=== PATIENT | male | born 1940 | race Caucasian/White ===

== ENCOUNTER 2021-12-11 13:52 | Inpatient (IN) | payer OTHER ==
[~2021-12-11] VITALS: Ht 152.4 cm; Wt 49.9 kg
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
--- NOTE | 2021-12-11 14:24 | NUR ---
URINE COLLECTED AND SENT TO THE LAB
[2021-12-11 14:49] LABS: BASOPHILS % (AUTO) 0.6 % (0.0-2.0); HEMATOCRIT 38 % (39-51); HEMOGLOBIN 12.8 g/dL (13.5-17.5); LYMPHOCYTES # (AUTO) 1.3 K/uL (0.8-4.8); MEAN CORPUSCULAR HGB CONC 33 g/dl (31.0-36.0); MEAN CORPUSCULAR VOLUME 91 fL (80-96); MONOCYTES # (AUTO) 0.5 K/uL (0.1-1.30); MONOCYTES % (AUTO) 14.8 % (2.0-12.0); NEUTROPHILS # (AUTO) 1.7 K/uL (1.8-8.9); NEUTROPHILS % (AUTO) 45.6 % (43.0-81.0); PLATELET COUNT (AUTO) 254 K/uL (150-450); RED BLOOD CELL COUNT(AUTO) 4.22 MIL/uL (4.5-6.0); WHITE BLOOD COUNT (AUTO) 3.7 K/uL (4.3-11.0)
[2021-12-11 14:58] LABS: ALANINE AMINOTRANSFERASE 12 U/L (12-78); ALBUMIN 3.7 g/dL (3.4-5.0); ALCOHOL, BLOOD 6 mg/dL (0-0); ALKALINE PHOSPHATASE 98 U/L (46-116); ASPARTATE AMINOTRANSFERASE 22 U/L (15-37); BILIRUBIN,DIRECT 0.1 mg/dL (0.0-0.2); BILIRUBIN,TOTAL 0.3 mg/dL (0.2-1.0); CALCIUM, SERUM 9.1 mg/dL (8.5-10.1); CARBON DIOXIDE 28 mmol/L (21-32); CHLORIDE 102 mmol/L (98-107); GLUCOSE 91 mg/dL (74-106); POTASSIUM 4.1 mmol/L (3.5-5.1); SODIUM SERUM 137 mmol/L (136-145); TOTAL PROTEIN, SERUM 7.9 g/dL (6.4-8.2); UREA NITROGEN, BLOOD 15 mg/dL (7-18)
[2021-12-11 15:01] LABS: BILIRUBIN,URINE NEGATIVE (NEGATIVE); COLOR,URINE YELLOW (YELLOW); LEUKOCYTE ESTERASE ,URINE NEGATIVE (NEGATIVE); NITRITE, URINE NEGATIVE (NEGATIVE); PROTEIN,URINE NEGATIVE (NEGATIVE); UGLUCOSE NEGATIVE (NEGATIVE); UROBILINOGEN,URINE 0.2 EU/dL (0.2)
[2021-12-11 15:21] LABS: WBC,URINE NONE SEEN /HPF (0-3)
[2021-12-11 15:22] LABS: SQUAMOUS EPITHELIAL CELL,UR Rare /HPF (None Seen)
[2021-12-11 15:23] LABS: RBC,URINE 0-2 /HPF (0-2)
[2021-12-11 15:24] LABS: BACTERIA,URINE Rare /HPF (None Seen)
[2021-12-11 15:36] LABS: ACETAMINOPHEN < 0 ug/ml (10-30)
--- NOTE | 2021-12-11 15:58 | NUR ---
COVID ANTIGEN SWAB DONE AND SENT TO THE LAB
--- NOTE | 2021-12-11 16:25 | NUR ---
COVID TEST COLLECTED AND SENT
--- NOTE | 2021-12-11 16:28 | NUR ---
CALL FROM MAI RN,HS, INISURANCE DID NOT AUTHORIZE PATIENT TO COME IN TO GPS AND INTAKE IS WORKING ON TRANSFERRING PATIENT TO ANOTHER FACILITY.
--- NOTE | 2021-12-11 16:29 | NUR ---
MOVE SHEET SUBMITTED.
--- NOTE | 2021-12-11 18:16 | NUR ---
ROOM 215-2
--- NOTE | 2021-12-11 18:31 | NUR ---
report given to nurse Ornelas for nikolay
--- NOTE | 2021-12-12 02:31 | NUR ---
ADLS DONE; PT URINATED VIA URINAL. VSS. ALL NEEDS MET AT THIS TIME. SAFETY PRECAUTIONS CONTINUED
--- NOTE | 2021-12-12 07:44 | NUR ---
REPORT GIVEN. PT TRANSFERED TO [facility] FLOOR IN STABLE CONDITION.
[2021-12-12 08:00] VITALS: BP 138/64
[2021-12-12] MEDS ORDERED: MAGNESIUM HYDROXIDE 30 ML UDC PO PRN (08:00)
[2021-12-12] MEDS ORDERED: BLOOD SUGAR DIAGNOSTIC 1 EACH STRIP IN ONE (08:00)
[2021-12-12] MEDS ORDERED: LORAZEPAM 0.5 MG TABLET PO PRN (08:00)
[2021-12-12] MEDS ORDERED: MAG HYDROX/AL HYDROX/SIMETH 30 ML UDC PO PRN (08:00)
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
[2021-12-12] MEDS: GABAPENTIN 100 MG CAPSULE PO SCH ×2 (12:12→16:54)
[2021-12-12 16:00] VITALS: BP 128/70
--- NOTE | 2021-12-12 18:46 | NUR ---
RN-CO: Patient refused x2 skin assessment.
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
[2021-12-12 20:00] VITALS: BP 121/67
[2021-12-12] MEDS: OLANZAPINE 2.5 MG TABLET PO SCH (20:53)
[2021-12-12] MEDS ORDERED: OLANZAPINE 2.5 MG TABLET PO SCH (22:00)
[2021-12-13 07:35] LABS: BILIRUBIN,TOTAL 0.5 mg/dL (0.2-1.0); CALCIUM, SERUM 8.6 mg/dL (8.5-10.1); CREATININE 0.9 mg/dL (0.6-1.3); POTASSIUM 4.1 mmol/L (3.5-5.1); TOTAL PROTEIN, SERUM 7.4 g/dL (6.4-8.2)
[2021-12-13 07:47] LABS: THYROID STIMULATING HORMONE 1.233 uIU/mL (0.358-3.74)
[2021-12-13 08:00] VITALS: BP 121/63
[2021-12-13] MEDS: GABAPENTIN 100 MG CAPSULE PO SCH ×3 (08:43→16:12)
--- NOTE | 2021-12-13 09:57 | NUR ---
Treatment Plan: Pt refused to sign treatment plan and was suspicious.
--- NOTE | 2021-12-13 10:20 | NUR ---
Social Work Note/Substance Abuse Intervention: Patient was provided with a brief substance abuse intervention and referred to [facility] ([phone]), [facility] ([phone]), and [facility] ([phone]) for alcohol abuse.
--- NOTE | 2021-12-13 10:32 | NUR ---
STEVEN Initial Discharge Plan: Patient currently resides at [address] , [place], [place] [address]; ([phone]). Pt would want to return back home. STEVEN will work with the MD, Family, and treatment team to help coordinate appropriate discharge.
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
--- NOTE | 2021-12-13 12:03 | NUR ---
UR Note: Auth #[id number]. Assigned CM Namrata. ( , ). SW sent clinicals requesting days.
--- NOTE | 2021-12-13 14:51 | NUR ---
DPOA: Patient's daughter Keturah is DPOA ([phone]) and sent the documents to this radio script writer. SW placed in the chart. Daughter would want this radio script writer to find an assisted living for pt.
--- NOTE | 2021-12-13 15:32 | NUR ---
UR Note: Auth #[id number]. Assigned CM Namrata. ( , ) who stated that pt is authorized until the discharge. Alexandra De La Cruz also confirmed this with Namrata and will follow up with her again.
[2021-12-13 15:52] VITALS: BP 136/63
--- NOTE | 2021-12-13 18:45 | NUR ---
RN NOTE PATIENT IN BED, AWAKE, A/O X2-3, VERBALLY RESPONSIVE, NO SIGNS OF ACUTE DISTRESS NOTED. STABLE ON ROOM AIR, BREATHING EVEN AND UNLABORED. COOPERATIVE, COMPLIANT WITH MEDS. AMBULATES AD MOUSTAPHA. SAFETY MEASURE PROVIDED. WILL ENDORSE TO NEXT SHIFT FOR CONTINUITY OF CARE.
--- NOTE | 2021-12-13 19:25 | NUR ---
RN NOTES RECEIVED PT IN BED AAOX3 ON RM AIR ISABELA WELL NO SIGN SOB/DISTRESS NOTED.PT REMAINE COOPERATIVE,ISOLATIVE.NO BEHAVIORAL CHANGES AT THIS TIME.BED LOCKED AND LOW POSITION.CONTINUE TO MONITOR.
[2021-12-13 20:00] VITALS: BP 133/68
[2021-12-13] MEDS: OLANZAPINE 2.5 MG TABLET PO SCH (20:08)
[2021-12-14 08:00] VITALS: BP 120/61
[2021-12-14] MEDS: GABAPENTIN 100 MG CAPSULE PO SCH ×3 (08:27→16:19)
[2021-12-14 15:55] VITALS: BP 145/68
--- NOTE | 2021-12-14 18:45 | NUR ---
RN NOTE PATIENT AWAKE AMBULATING IN THE HALLWAY WITH FWW, A/O X2-3, VERBALLY RESPONSIVE, NO SIGNS OF ACUTE DISTRESS NOTED. STABLE ON ROOM AIR, BREATHING EVEN AND UNLABORED. COOPERATIVE, COMPLIANT WITH MEDS. NOTED WITH FORGETFULNESS. REORIENTED NEEDED. SAFETY MEASURE PROVIDED. WILL ENDORSE TO NEXT SHIFT FOR CONTINUITY OF CARE.
[2021-12-14 20:00] VITALS: BP 129/63
[2021-12-14] MEDS: OLANZAPINE 2.5 MG TABLET PO SCH (21:11)
[2021-12-15 08:00] VITALS: BP 137/70
[2021-12-15] MEDS: GABAPENTIN 100 MG CAPSULE PO SCH ×3 (08:32→16:39)
[2021-12-15 16:00] VITALS: BP 121/62
--- NOTE | 2021-12-15 19:59 | NUR ---
GPS Nurses Opening Notes: RECEIVED PATIENT AWAKE AND IN BED, NO S/S OR COMPLAINTS OF PAIN AT THIS TIME. PATIENT IS DISPLAYING NO S/S OF APPARENT DISTRESS AT THIS TIME. PATIENT BREATHING IS UNLABORED WITH EQUAL RISE AND FALL OF THE CHEST. PATIENT IS ALERT AND ORIENTED X 3 ON ROOM AIR WITH A SPO2 95%. PATIENT IS COMPLIANT WITH MEDICATIONS, ANXIOUS, PARANOID, ISOLATIVE, DISORGANIZED, AND COOPERATIVE. PATIENT DENIES SUICIDAL AND HOMICIDAL IDEATIONS AT THIS TIME. PATIENT ASSISTED WITH TURNING AND REPOSITIONING Q2HR AND PRN FOR COMFORT AND CIRCULATION. PATIENT HAS NO NEEDS AT THIS TIME. PATIENT EDUCATED ON THE USE OF THE CALL BERNARDO. PATIENT BED SIDE RAILS UP X 2 FOR SAFETY. PATIENT BED IS LOCKED, LOW, WITH BED ALARM ON. WILL CONTINUE TO MONITOR THIS PATIENT Q15 MINUTES WITH THE HELP OF STAFF TO MAINTAIN SAFETY.
[2021-12-15 20:11] VITALS: BP 136/66
[2021-12-15] MEDS: OLANZAPINE 2.5 MG TABLET PO SCH (21:23)
[2021-12-15] MEDS: TEMAZEPAM 7.5 MG CAPSULE PO PRN (21:40)
--- NOTE | 2021-12-16 05:31 | NUR ---
GPS Nurses Notes: Pt still in bed sleeping, no s/s of pain and discomfort, respiration is unlabored, no SOB noted, all needs attended.
[2021-12-16 08:00] VITALS: BP 144/79
[2021-12-16] MEDS: GABAPENTIN 100 MG CAPSULE PO SCH ×3 (08:36→17:11)
[2021-12-16] MEDS: ACETAMINOPHEN 325 MG TABLET PO PRN (08:52)
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
--- NOTE | 2021-12-16 11:28 | NUR ---
RN-CO:PATIENT IS CALM AND COOPERATIVE TO CARE. COMPLIANT WITH MEDS, WELL GROOMED I WILL ENCOURAGED TO VENTILATE FEELINGS AND MONITOR FOR SAFETY.PATIENT IS PARTICIPATING IN GROUP ACTIVITIES.
--- NOTE | 2021-12-16 11:31 | NUR ---
UR Note: AUTH #[id number] Assigned CM Pascale P @[phone] F @[phone] Review is due 12/17/2021 Addendum: 12/16/21 at 1615 by STEVEN HOPE discharge for different patient
[2021-12-16 16:55] VITALS: BP 133/88
--- NOTE | 2021-12-16 19:53 | NUR ---
GPS RN OPENING NOTES: RECEIVED PATIENT AMBULATING IN HALLWAY. A/O X3. BLUNTED AFFECT, ANXIOUS, FOCUSED ON DISCHARGE, DISCHARGE PROCEDURE EXPLAINED TO PATIENT, COOPERATIVE. DENIES SI, HI AND PAIN AT THIS TIME. NO S/S OF DISTRESS. RESPIRATION EVEN AND UNLABORED WITH EQUAL RISE AND FALL OF THE CHEST, ON ROOM AIR. OFFERED FLUID AND SNACKS TOLERATED. WILL CONTINUE TO MONITOR Q15 FOR MOOD, SAFETY AND BEHAVIOR.
[2021-12-16 20:29] VITALS: BP 129/76
[2021-12-16] MEDS: OLANZAPINE 2.5 MG TABLET PO SCH (21:14)
[2021-12-16] MEDS: TEMAZEPAM 7.5 MG CAPSULE PO PRN (22:17)
--- NOTE | 2021-12-16 22:20 | NUR ---
GPS RN NOTES: PATIENT REQUESTED FOR SLEEP MEDICATION. RESTORIL 7.5MG GIVEN PO AT 2217. WILL CONTINUE TO MONITOR.
[2021-12-17 08:00] VITALS: BP 141/63
[2021-12-17] MEDS: GABAPENTIN 100 MG CAPSULE PO SCH ×3 (09:28→16:59)
--- NOTE | 2021-12-17 09:56 | NUR ---
Training Development Specialist: SW spoke with Becky case management manager who coordinates out patient referrals ([phone]).
--- NOTE | 2021-12-17 12:52 | NUR ---
Court Notification: SW left a voicemail for pt's daughter CASEY Rebollar ([phone]) of [phone] hearing.
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
[2021-12-17 16:39] VITALS: BP 129/80
[2021-12-17 19:47] VITALS: BP 111/65
--- NOTE | 2021-12-17 20:15 | NUR ---
RN NOTES: PATIENT RESTING IN BED . NO S/SX OF ACUTE DISTRESS NOTED. PATIENT EASILY AGITATED ANXIOUS,PARANOID,HYPERVERBAL NEEDY,DEMANDING, EASILY GETS IRRITABLE, FOCUSED ON DISCHARGED ,DENIED SI/HI/AVH AT THIS TIME. SAFETY PRECAUTIONS IN PLACE. WILL CONTINUE TO MONITOR Q15MIN ROUNDS FOR SAFETY.
[2021-12-17] MEDS: OLANZAPINE 2.5 MG TABLET PO SCH (20:23)
[2021-12-17] MEDS: TEMAZEPAM 7.5 MG CAPSULE PO PRN (23:32)
--- NOTE | 2021-12-17 23:33 | NUR ---
RN NOTES: INSOMNIA PT. C/O UNABLE TO SLEEP ,PRN RESTORIL 7.5 MG GIVEN PO FOR SLEEP WILL CONTINUE TO MONITOR.
[2021-12-18 08:00] VITALS: BP 141/72
--- NOTE | 2021-12-18 09:21 | NUR ---
STEVEN Family Contact: STEVEN spoke with patient's DPALEENA Rebollar ([phone]) and stated pt is accepted at [facility]isted [facility] and she was agreeable of this $1000.00.
[2021-12-18] MEDS: GABAPENTIN 100 MG CAPSULE PO SCH ×3 (10:27→17:39)
--- NOTE | 2021-12-18 14:43 | NUR ---
UR Note: STEVEN contacted pt's insurance and spoke with Stephanie ( , ) who stated that pt does not have a skilled need. STEVEN had faxed clinicals (F:[phone]). STEVEN also faxed to [facility] for placement option.
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
[2021-12-18 16:00] VITALS: BP 132/80
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
--- NOTE | 2021-12-18 19:15 | NUR ---
GPS RN NOTES RECEIVED PATIENT IN BED AWAKE, A/OX3. NO S/SX OF ACUTE DISTRESS NOTED. PATIENT REMAINS ANXIOUS, COOPERATIVE TO CARE, MORE VISIBLE IN THE UNIT. DENIED SI/HI/AVH AT THIS TIME. VERBALIZATION OF FEELINGS ENCOURAGED. ENCOURAGED TO ATTEND IN GROUP ACTIVITIES. SAFETY PRECAUTIONS MAINTAINED. WILL CONTINUE TO MONITOR Q15MIN ROUNDS FOR SAFETY AND BEHAVIOR.
[2021-12-18 20:00] VITALS: BP 147/71
[2021-12-18] MEDS: OLANZAPINE 2.5 MG TABLET PO SCH (20:47)
[2021-12-18] MEDS: TEMAZEPAM 7.5 MG CAPSULE PO PRN (21:05)
[2021-12-19] MEDS: GABAPENTIN 100 MG CAPSULE PO SCH ×3 (08:13→16:14)
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
--- NOTE | 2021-12-19 10:25 | NUR ---
Trim Machine Adjuster: STEVEN spoke with Becky caseworker protective services who coordinates out patient referrals ([phone]) she coordinated an intake process with a faculty neuropsychologist Tamara Mtz located at [facility] located at [address] [place] [address]; on December 24 and they will be calling pt (via telehealth).
--- NOTE | 2021-12-19 19:15 | NUR ---
GPS RN NOTES RECEIVED PATIENT IN BED AWAKE, ALERT AND ORIENTED X3. NO S/SX OF ACUTE DISTRESS NOTED. PATIENT REMAINS ANXIOUS, COOPERATIVE TO CARE, MORE VISIBLE IN THE UNIT, LABILE MOOD. DENIED SI/HI/AVH AT THIS TIME. VERBALIZATION OF FEELINGS ENCOURAGED. ENCOURAGED TO ATTEND IN GROUP ACTIVITIES. SAFETY PRECAUTIONS MAINTAINED. WILL CONTINUE TO MONITOR Q15MIN ROUNDS FOR SAFETY AND BEHAVIOR.
[2021-12-19 20:00] VITALS: BP 121/72
[2021-12-19] MEDS: OLANZAPINE 5 MG TABLET PO SCH (21:08)
[2021-12-19] MEDS: TEMAZEPAM 7.5 MG CAPSULE PO PRN (21:22)
[2021-12-20 08:00] VITALS: BP 124/70
[2021-12-20] MEDS: GABAPENTIN 100 MG CAPSULE PO SCH ×4 (08:07→16:27)
--- NOTE | 2021-12-20 09:30 | NUR ---
RN Notes: Received pt. asleep in bed, breathing is even and unlabored. Ate 100% for breakfast, compliant on med. Pt. is cooperative to care, interacts to staffs, no distress and no agitation noted. Encouraged to verbalize feelings and motivated attend group activity. Needs attended and will continue to monitor for safety.
--- NOTE | 2021-12-20 13:11 | NUR ---
New order of Gapabentin 200 mg not given for 1300 due to old order was given already.
--- NOTE | 2021-12-20 13:16 | NUR ---
STEVEN Family Contact: SW left a detailed voicemail to CASEY Rebollar ([phone]) daughter, stated dc for Thursday will be canceled and doctor is increasing his medications and possibly will be Thursday. Doctor would want to monitor pt's behavior as he is still labile.
--- NOTE | 2021-12-20 14:05 | NUR ---
SW Family Contact: SW spoke with ASHLIEALEENA Rebollar ([phone]) and she stated that she is in the process of possibly placing her mother in a assisted living as she is developing hallucinations and having cognitive issues.
[2021-12-20 16:00] VITALS: BP 142/85
--- NOTE | 2021-12-20 19:30 | NUR ---
GPS RN NOTE, RECEIVED PATIENT AWAKE AND IN BED, NO S/S OR COMPLAINTS OF PAIN AT THIS TIME. PATIENT IS DISPLAYING NO S/S OF APPARENT DISTRESS AT THIS TIME. PATIENT BREATHING IS UNLABORED WITH EQUAL RISE AND FALL OF THE CHEST. PATIENT IS ALERT AND ORIENTED X 1-2 ON ROOM AIR WITH A SPO2 98%. PATIENT IS COMPLIANT WITH MEDICATIONS, ANXIOUS, DEPRESSED, LABILE, CONFUSED AT TIMES, DISORGANIZED, AND COOPERATIVE. PATIENT DENIES SUICIDAL AND HOMICIDAL IDEATIONS AT THIS TIME. PATIENT ASSISTED WITH TURNING AND REPOSITIONING Q2HR AND PRN FOR COMFORT AND CIRCULATION. PATIENT HAS NO NEEDS AT THIS TIME. PATIENT EDUCATED ON THE USE OF THE CALL BERNARDO. PATIENT BED SIDE RAILS UP X 2 FOR SAFETY. PATIENT BED IS LOCKED, LOW, WITH BED ALARM ON. WILL CONTINUE TO MONITOR THIS PATIENT Q15 MINUTES WITH THE HELP OF STAFF TO MAINTAIN SAFETY.
[2021-12-20 20:11] VITALS: BP 113/67
[2021-12-20] MEDS: OLANZAPINE 5 MG TABLET PO SCH (21:21)
[2021-12-21 08:00] VITALS: BP 142/76
[2021-12-21] MEDS: GABAPENTIN 100 MG CAPSULE PO SCH ×3 (08:02→16:26)
--- NOTE | 2021-12-21 09:25 | NUR ---
RN Notes: Received pt. asleep in bed, breathing is even and unlabored. Ate 100% for breakfast, compliant on med. Pt. is cooperative to care and isolates in room at this time, no distress and no agitation noted. Encouraged to verbalize feelings and motivated attend group activity. Needs attended and will continue to monitor for safety.
[2021-12-21 16:00] VITALS: BP 130/60
--- NOTE | 2021-12-21 19:30 | NUR ---
GPS RN NOTE, RECEIVED PATIENT AWAKE AND IN BED, NO S/S OR COMPLAINTS OF PAIN AT THIS TIME. PATIENT IS DISPLAYING NO S/S OF APPARENT DISTRESS AT THIS TIME. PATIENT BREATHING IS UNLABORED WITH EQUAL RISE AND FALL OF THE CHEST. PATIENT IS ALERT AND ORIENTED X 1-2 ON ROOM AIR WITH A SPO2 94%. PATIENT IS COMPLIANT WITH MEDICATIONS, ANXIOUS, DEPRESSED, LABILE, CONFUSED AT TIMES, MAKES NEEDS KNOWN, DISORGANIZED, AND COOPERATIVE. PATIENT DENIES SUICIDAL AND HOMICIDAL IDEATIONS AT THIS TIME. PATIENT ASSISTED WITH TURNING AND REPOSITIONING Q2HR AND PRN FOR COMFORT AND CIRCULATION. PATIENT HAS NO NEEDS AT THIS TIME. PATIENT EDUCATED ON THE USE OF THE CALL BERNARDO. PATIENT BED SIDE RAILS UP X 2 FOR SAFETY. PATIENT BED IS LOCKED, LOW, WITH BED ALARM ON. WILL CONTINUE TO MONITOR THIS PATIENT Q15 MINUTES WITH THE HELP OF STAFF TO MAINTAIN SAFETY.
[2021-12-21 20:18] VITALS: BP 140/78
[2021-12-21] MEDS: OLANZAPINE 5 MG TABLET PO SCH (21:33)
[2021-12-22 08:00] VITALS: BP 138/62
[2021-12-22] MEDS: GABAPENTIN 100 MG CAPSULE PO SCH ×3 (08:33→17:13)
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
[2021-12-22 16:00] VITALS: BP 120/63
[2021-12-22 19:53] VITALS: BP 130/76
--- NOTE | 2021-12-22 19:53 | NUR ---
GPS RN OPENING NOTES: RECEIVED PATIENT AMBULATING IN HALLWAY. A/O X3. APPROPRIATE AFFECT, ANXIOUS, RESTLESS, COOPERATIVE. DENIES SI, HI AND PAIN AT THIS TIME. NO S/S OF DISTRESS. RESPIRATION EVEN AND UNLABORED WITH EQUAL RISE AND FALL OF THE CHEST, ON ROOM AIR. OFFERED FLUID AND SNACKS TOLERATED. WILL CONTINUE TO MONITOR Q15 FOR MOOD, SAFETY AND BEHAVIOR.
[2021-12-22] MEDS: OLANZAPINE 5 MG TABLET PO SCH (21:09)
--- NOTE | 2021-12-22 21:11 | NUR ---
GPS RN NOTES: ZYPREXA 0.25MG WASTED PER PARTIAL DOSE ORDER.
[2021-12-22] MEDS: TEMAZEPAM 7.5 MG CAPSULE PO PRN (21:41)
--- NOTE | 2021-12-22 21:42 | NUR ---
GPS RN NOTES: PATIENT REQUESTED FOR SLEEP MEDICATION. RESTORIL 7.5MG GIVEN PO AT 2141. WILL CONTINUE TO MONITOR.
--- NOTE | 2021-12-23 06:43 | NUR ---
GPS RN CLOSING NOTES: PATIENT IS CURRENTLY SLEEPING. PATIENT SLEPT 8HRS THIS SHIFT. NO S/S OF DISTRESS. RESPIRATION EVEN AND UNLABORED WITH EQUAL RISE AND FALL OF THE CHEST, ON ROOM AIR. ALL PATIENT CARE NEEDS HAVE BEEN MET ANTICIPATED. WILL CONTINUE TO MONITOR Q15 FOR SAFETY, MOOD AND BEHAVIOR AND ENDORSE TO AM SHIFT.
[2021-12-23 08:00] VITALS: BP 127/69
[2021-12-23] MEDS: GABAPENTIN 100 MG CAPSULE PO SCH ×3 (09:18→17:36)
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
[2021-12-23 16:00] VITALS: BP 127/69
[2021-12-23 20:02] VITALS: BP 115/65
[2021-12-23] MEDS: ACETAMINOPHEN 325 MG TABLET PO PRN (21:09)
[2021-12-23] MEDS: OLANZAPINE 10 MG TABLET PO SCH (21:10)
[2021-12-24] MEDS: TEMAZEPAM 7.5 MG CAPSULE PO PRN (00:54)
[2021-12-24 08:00] VITALS: BP 129/78
--- NOTE | 2021-12-24 08:19 | NUR ---
STEVEN Family Contact: SW spoke with ASHLIEALEENA Rebollar ([phone]) who stated that her father has had mental illness for many years and has never received treatment.
[2021-12-24] MEDS: GABAPENTIN 100 MG CAPSULE PO SCH ×3 (08:51→17:53)
--- NOTE | 2021-12-24 14:09 | NUR ---
STEVEN Family Contact: SW spoke with ASHLIEALEENA Rebollar ([phone]) advised daughter Keturah of getting a restraining order so that her mother is protected. She stated that her and her sister have done this many years and that it is a waste of time. She stated that they will not be filing for another restraining order and that they do not have time to go through this.
[2021-12-24 16:00] VITALS: BP 123/67
--- NOTE | 2021-12-24 19:30 | NUR ---
GPS RN NOTE, RECEIVED PATIENT AWAKE AND IN BED, NO S/S OR COMPLAINTS OF PAIN AT THIS TIME. PATIENT IS DISPLAYING NO S/S OF APPARENT DISTRESS AT THIS TIME. PATIENT BREATHING IS UNLABORED WITH EQUAL RISE AND FALL OF THE CHEST. PATIENT IS ALERT AND ORIENTED X 1-2 ON ROOM AIR WITH A SPO2 98%. PATIENT IS COMPLIANT WITH MEDICATIONS, ANXIOUS, DEPRESSED, LABILE, CONFUSED AT TIMES, MAKES NEEDS KNOWN, DISORGANIZED, AND COOPERATIVE. PATIENT DENIES SUICIDAL AND HOMICIDAL IDEATIONS AT THIS TIME. PATIENT ASSISTED WITH TURNING AND REPOSITIONING Q2HR AND PRN FOR COMFORT AND CIRCULATION. PATIENT HAS NO NEEDS AT THIS TIME. PATIENT EDUCATED ON THE USE OF THE CALL BERNARDO. PATIENT BED SIDE RAILS UP X 2 FOR SAFETY. PATIENT BED IS LOCKED, LOW, WITH BED ALARM ON. WILL CONTINUE TO MONITOR THIS PATIENT Q15 MINUTES WITH THE HELP OF STAFF TO MAINTAIN SAFETY.
[2021-12-24 20:15] VITALS: BP 123/68
[2021-12-24] MEDS: ACETAMINOPHEN 325 MG TABLET PO PRN (21:20)
[2021-12-24] MEDS: OLANZAPINE 10 MG TABLET PO SCH (21:20)
--- NOTE | 2021-12-24 21:22 | NUR ---
GPS RN NOTE, PATIENT HAS A COMPLAINT OF A HEAD ACHE AT A 2 OUT OF 10 ON THE PAIN SCALE AND IS REQUESTING TYLENOL AT THIS TIME. PATIENT VITAL SIGNS ARE STABLE. GAVE TYLENOL 650MG PO Q6HR PRN ORDERED. WILL REASSESS PAIN AND I WILL CONTINUE TO MONITOR THIS PATIENT WITH THE HELP OF STAFF.
[2021-12-25 08:00] VITALS: BP 142/59
[2021-12-25] MEDS: GABAPENTIN 100 MG CAPSULE PO SCH ×3 (08:14→17:06)
--- NOTE | 2021-12-25 09:52 | NUR ---
SW Note: Patient also has a psychology physician follow up with his insurance with Tamara Mtz located at [facility] located at [address] [place] [address]; on December 27 at 3:30PM and they will be calling pt (via telehealth). Coordinated by Becky international logistics manager.
--- NOTE | 2021-12-25 10:03 | NUR ---
APS Contact: SW received a call from Elysia APS dependency case manager ([phone]) who stated that he will follow up with pt at the [facility].
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
[2021-12-25 16:00] VITALS: BP 128/60
[2021-12-25] MEDS: ACETAMINOPHEN 325 MG TABLET PO PRN (16:02)
--- NOTE | 2021-12-25 19:35 | NUR ---
GPS RN NOTES RECEIVED ALERT X4,AMBULATE WITH WALKER,FALL PRECAUTIONS OBSERVED,ABLE TO VERBALIZE NEEDS,MED COMPLIANT,FREQUENT CHECK Q 15 MINUTES FOR SAFETY.WILL CONTINUE TO MONITOR BEHAVIOR.
[2021-12-25 20:00] VITALS: BP 149/68
[2021-12-25] MEDS: OLANZAPINE 10 MG TABLET PO SCH (21:44)
[2021-12-25] MEDS: TEMAZEPAM 7.5 MG CAPSULE PO PRN (21:44)
--- NOTE | 2021-12-25 21:44 | NUR ---
GPS RN NOTES C/O INSOMNIA,RESTORIL 7.5MG PO GIVEN [id number].WILL MONITOR HOUR OF SLEEP.
--- NOTE | 2021-12-26 06:33 | NUR ---
GPS RN NOTES SLEEP WELL AT NIGHT,POSSIBLE D/C TO [facility] [place] AT 3PM
[2021-12-26 08:00] VITALS: BP 119/64
--- NOTE | 2021-12-26 08:10 | NUR ---
SW Discharge Note: Patient will discharge to [facility], [address] [facility] [address]; ([phone]). Elissa coordinated transportation and the facility will pickling grader pt at 1PM. Elissa coordinator ([phone]) stated pt is accepted today. Patients DPOA daughter Keturah ([phone]) is aware and agreeable. Patient denies visual/auditory hallucinations. Patient is alert and oriented x2. Patient referred to [facility] for primary doctor located at [address] [place] [address], [address], [place] [address] ([phone]). Patient will follow up with (Psychiatrist) Dr. Anne Burns at the facility who will monitor and provide psychotropic medications at the facility. Patient also has a clinical psychologist licensed follow up with his insurance with Tamara Mtz located at [facility] located at [address] [place] [id number]; on December 27 at 3:30PM and they will be calling pt (via telehealth). Patient presents with euthymic mood and congruent affect.
[2021-12-26] MEDS: GABAPENTIN 100 MG CAPSULE PO SCH ×2 (08:13→12:14)
--- NOTE | 2021-12-26 09:18 | NUR ---
Dr. Wen gave an order to D/C hold and D/C to [facility]. and to follow up with the psychiatrist Dr. Anne Burns and referred to [facility] for primary doctor. Pt. without distress, denies suicidal and homicidal. Belongings ready and discharge papers ready.
--- NOTE | 2021-12-26 10:35 | NUR ---
Dr. Wen provided a prescriptions or meds to continue and faxed to [facility] with the fax # of [phone] and with the tel# of [phone]. Spoke to Susie over the pharmacy and said she received the fax of the prescriptions. Addendum: 12/26/21 at 1634 by JENNIFER STONER RN Dr. Moran made of the discharge and d/c the prn meds. Pt. signed the discharge papers and belongings ready.
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
[2021-12-26 16:00] VITALS: BP 133/73
--- NOTE | 2021-12-26 16:01 | NUR ---
STEVEN Family Contact: STEVEN contacted CASEY Rebollar ([phone]) and left a voicemail that pt is being picked up at 4PM and will be going to the assisted living.
--- NOTE | 2021-12-26 16:13 | NUR ---
Pt. left the unit via private car and picked by the facility warehouse associate driver Cristobal. Pt. was transported to the [facility] via wheelchair and wheeled by staff with belongings. Pt. instructed on meds to continue and advised to made a follow up with psych and medical doctors and verbalizes understanding. Pt. left the unit without distress and no agitation. V/S taken taken prior discharge.
== END 2021-12-26 16:13 | DRG 885 ==
LOC: ER 14:02 → GPS 18:42
PROVIDERS: ADMIT Psychiatry & Neurology Psychosomatic Medicine; ATTEND Student in an Organized Health Care Education/Training Program
DX: F29 Unspecified psychosis not due to a substance or known physiological condition (principal); F01.50 Vascular dementia, unspecified severity, without behavioral disturbance, psychotic disturbance, mood disturbance, and anxiety; E44.0 Moderate protein-calorie malnutrition; F41.9 Anxiety disorder, unspecified; D64.9 Anemia, unspecified; D70.9 Neutropenia, unspecified; E88.09 Other disorders of plasma-protein metabolism, not elsewhere classified; M19.90 Unspecified osteoarthritis, unspecified site; Z68.21 Body mass index [BMI] 21.0-21.9, adult; F25.9 Schizoaffective disorder, unspecified; Z72.89 Other problems related to lifestyle
CPT/HCPCS: 36415; 80048-TC; 80053-TC; 80061-TC; 80076-TC; 81001; 84443-TC; 85025-TC; 87081-TC; C9803; G0480

== ENCOUNTER 2023-02-03 12:55 | Inpatient (IN) | payer OTHER ==
[~2023-02-03] VITALS: Ht 157.5 cm; Wt 52.2 kg
[2023-02-03 13:23] LABS: BASOPHILS # (AUTO) 0.2 K/uL (0.0-0.2); BASOPHILS % (AUTO) 1.7 % (0.0-2.0); EOSINOPHILS # (AUTO) 0.6 K/uL (0.0-0.7); EOSINOPHILS % (AUTO) 6.7 % (0.0-6.0); HEMATOCRIT 50 % (39-51); LYMPHOCYTES # (AUTO) 1.8 K/uL (0.8-4.8); LYMPHOCYTES % (AUTO) 19.6 % (20.0-44.0); MEAN CORPUSCULAR HEMOGLOBIN 30 PG (26.0-33.0); MEAN CORPUSCULAR HGB CONC 32 g/dl (31.0-36.0); MEAN CORPUSCULAR VOLUME 94 fL (80-96); MONOCYTES # (AUTO) 0.5 K/uL (0.1-1.30); MONOCYTES % (AUTO) 5.9 % (2.0-12.0); NEUTROPHILS # (AUTO) 5.9 K/uL (1.8-8.9); NEUTROPHILS % (AUTO) 66.1 % (43.0-81.0); PLATELET COUNT (AUTO) 271 K/uL (150-450); RED BLOOD CELL COUNT(AUTO) 5.33 MIL/uL (4.5-6.0); RED CELL DISTRIBUTION WIDTH 17.6 % (11.5-15.0)
[2023-02-03 14:01] LABS: ALANINE AMINOTRANSFERASE 20 U/L (12-78); ALBUMIN 3.2 g/dL (3.4-5.0); ASPARTATE AMINOTRANSFERASE 44 U/L (15-37); BILIRUBIN,DIRECT 0.3 mg/dL (0.0-0.2); BILIRUBIN,TOTAL 0.8 mg/dL (0.2-1.0); CALCIUM, SERUM 9.1 mg/dL (8.5-10.1); CARBON DIOXIDE 29 mmol/L (21-32); CHLORIDE 119 mmol/L (98-107); CREATININE 2.5 mg/dL (0.6-1.3); GLUCOSE 115 mg/dL (74-106); LIPASE 230 U/L (73-393); NT-PRO BNP 464 pg/mL (0-125); POTASSIUM 4.8 mmol/L (3.5-5.1); TOTAL PROTEIN, SERUM 9.1 g/dL (6.4-8.2); UREA NITROGEN, BLOOD 72 mg/dL (7-18)
[2023-02-03 14:02] LABS: SODIUM SERUM 157 mmol/L (136-145)
[2023-02-03 14:04] LABS: ALKALINE PHOSPHATASE 87 U/L (46-116)
[2023-02-03 14:23] LABS: SERUM AMMONIA 20 umol/L (11-32)
[2023-02-03 14:35] LABS: APPEARANCE,URINE CLEAR (CLEAR); BILIRUBIN,URINE 1+ (NEGATIVE); BLOOD, URINE NEGATIVE Ery/uL (NEGATIVE); COLOR,URINE DARK YELLOW (YELLOW); KETONES,URINE TRACE mg/dL (NEGATIVE); LEUKOCYTE ESTERASE ,URINE NEGATIVE (NEGATIVE); NITRITE, URINE NEGATIVE (NEGATIVE); PH,URINE 5.5 (5.0-8.0); PROTEIN,URINE NEGATIVE (NEGATIVE); UGLUCOSE NEGATIVE (NEGATIVE)
[2023-02-03 14:48] LABS: ADD URINE CULTURE NO; BACTERIA,URINE None seen /HPF (None Seen); RBC,URINE NONE SEEN /HPF (0-2); WBC,URINE NONE SEEN /HPF (0-3)
[2023-02-03] MEDS ORDERED: ONDANSETRON HCL/PF 4 MG/2 ML VIAL IVP PRN (16:00)
[2023-02-03] MEDS ORDERED: Z GUARD REMEDY 4 OZ OINT TP PRN (16:00)
[2023-02-03] MEDS ORDERED: ZOLPIDEM TARTRATE 5 MG TABLET PO PRN (16:00)
[2023-02-03] MEDS ORDERED: MAGNESIUM HYDROXIDE 30 ML UDC PO PRN (16:00)
[2023-02-03] MEDS ORDERED: MAG HYDROX/AL HYDROX/SIMETH 30 ML UDC PO PRN (16:00)
[2023-02-03 17:40] LABS: BAND % (MANUAL) 1 % (0.0-5.0); EOSINOPHILS % (MANUAL) 6 % (0-4); LYMPHOCYTES % (MANUAL) 23 % (16-48); MONOCYTES % (MANUAL) 4 % (0-11.0); MYELOCYTES % 3 % (0-0); NEUTROPHILS % (MANUAL) 63 (42-76); PLATELET ESTIMATE ADEQUATE
[2023-02-03 18:11] VITALS: BP 100/72; TEMP 98.4; O2SAT 94
[2023-02-03 19:09] LABS: AMPHETAMINE, URINE NEGATIVE (NEGATIVE); BARBITURATE, URINE NEGATIVE (NEGATIVE); BENZODIAZEPINE, URINE NEGATIVE (NEGATIVE); CANNABINOID, URINE NEGATIVE (NEGATIVE); COCCAINE, URINE NEGATIVE (NEGATIVE); OPIATE, URINE NEGATIVE (NEGATIVE); PHENCYCLIDINE SCREEN,URINE NEGATIVE (NEGATIVE)
[2023-02-03 20:22] VITALS: BP 111/88; TEMP 98.8; O2SAT 96
[2023-02-03] MEDS ORDERED: PERMETHRIN 5% CRM 60 GM TUBE TP ONE (21:00)
[2023-02-03] MEDS: IV 1/2NS 1000 ML 1,000 ML IV PRN (21:01)
[2023-02-04 00:15] VITALS: BP 128/67; TEMP 98.7; O2SAT 96
[2023-02-04 04:00] VITALS: BP 142/84; TEMP 99.3; O2SAT 98
[2023-02-04] MEDS: IV 1/2NS 1000 ML 1,000 ML IV PRN (05:56)
[2023-02-04 08:00] VITALS: BP 124/42; TEMP 98.4; O2SAT 100
[2023-02-04 08:49] LABS: BASOPHILS # (AUTO) 0.1 K/uL (0.0-0.2); BASOPHILS % (AUTO) 0.9 % (0.0-2.0); EOSINOPHILS # (AUTO) 0.2 K/uL (0.0-0.7); EOSINOPHILS % (AUTO) 2.3 % (0.0-6.0); HEMATOCRIT 45 % (39-51); HEMOGLOBIN 14.2 g/dL (13.5-17.5); LYMPHOCYTES # (AUTO) 1.3 K/uL (0.8-4.8); LYMPHOCYTES % (AUTO) 14.2 % (20.0-44.0); MEAN CORPUSCULAR HEMOGLOBIN 30 PG (26.0-33.0); MEAN CORPUSCULAR HGB CONC 31 g/dl (31.0-36.0); MEAN CORPUSCULAR VOLUME 96 fL (80-96); MONOCYTES # (AUTO) 0.9 K/uL (0.1-1.30); MONOCYTES % (AUTO) 9.6 % (2.0-12.0); NEUTROPHILS # (AUTO) 6.7 K/uL (1.8-8.9); PLATELET COUNT (AUTO) 204 K/uL (150-450); RED BLOOD CELL COUNT(AUTO) 4.73 MIL/uL (4.5-6.0); RED CELL DISTRIBUTION WIDTH 17.7 % (11.5-15.0); WHITE BLOOD COUNT (AUTO) 9.2 K/uL (4.3-11.0)
[2023-02-04 09:01] LABS: CALCIUM, SERUM 8.2 mg/dL (8.5-10.1); CARBON DIOXIDE 22 mmol/L (21-32); CHLORIDE 120 mmol/L (98-107); CREATININE 2.4 mg/dL (0.6-1.3); GLUCOSE 113 mg/dL (74-106); MAGNESIUM 3.3 mg/dL (1.8-2.4); PHOSPHORUS 5.6 mg/dL (2.5-4.9); POTASSIUM 4.9 mmol/L (3.5-5.1); SERUM AMMONIA 45 umol/L (11-32)
[2023-02-04 09:05] LABS: CREATINE KINASE, TOTAL 321 U/L (39-308)
[2023-02-04 09:07] LABS: SODIUM SERUM 157 mmol/L (136-145); UREA NITROGEN, BLOOD 85 mg/dL (7-18)
[2023-02-04] MEDS ORDERED: IV D5W 500 ML IV ONE ×2 (10:00→12:00)
[2023-02-04] MEDS ORDERED: IV D5W 1,000 ML IV ONE (10:00)
[2023-02-04 12:00] VITALS: BP 125/98; TEMP 97.7; O2SAT 100
[2023-02-04 12:50] LABS: THYROID STIMULATING HORMONE 3.065 uIU/mL (0.358-3.74); URIC ACID 14.8 mg/dL (2.6-7.2)
[2023-02-04 16:00] VITALS: BP 126/53; TEMP 98.2; O2SAT 100
[2023-02-04 16:01] LABS: CALCIUM, SERUM 7.8 mg/dL (8.5-10.1); CARBON DIOXIDE 28 mmol/L (21-32); CHLORIDE 118 mmol/L (98-107); CREATININE 2.3 mg/dL (0.6-1.3); GLUCOSE 236 mg/dL (74-106); POTASSIUM 4.3 mmol/L (3.5-5.1); SODIUM SERUM 154 mmol/L (136-145)
[2023-02-04 16:14] LABS: UREA NITROGEN, BLOOD 83 mg/dL (7-18)
[2023-02-04] MEDS: IV D5W 1,000 ML IV PRN (18:52)
[2023-02-04 20:00] VITALS: BP 125/68; TEMP 99.4; O2SAT 100
[2023-02-05 04:00] VITALS: BP 126/82; TEMP 97.5; O2SAT 100
[2023-02-05] MEDS: IV D5W 1,000 ML IV PRN ×2 (04:23→13:07)
[2023-02-05 05:54] LABS: EOSINOPHIL,URINE None Seen
[2023-02-05 05:55] LABS: APPEARANCE,URINE TURBID (CLEAR); BILIRUBIN,URINE NEGATIVE (NEGATIVE); BLOOD, URINE NEGATIVE Ery/uL (NEGATIVE); COLOR,URINE DARK YELLOW (YELLOW); KETONES,URINE NEGATIVE (NEGATIVE); LEUKOCYTE ESTERASE ,URINE NEGATIVE (NEGATIVE); NITRITE, URINE NEGATIVE (NEGATIVE); PROTEIN,URINE NEGATIVE (NEGATIVE); UGLUCOSE NEGATIVE (NEGATIVE)
[2023-02-05 05:56] LABS: ADD URINE CULTURE NO; BACTERIA,URINE None seen /HPF (None Seen); RBC,URINE 0-2 /HPF (0-2); SQUAMOUS EPITHELIAL CELL,UR Few /HPF (None Seen); WBC,URINE 0-2 /HPF (0-3)
[2023-02-05 06:12] LABS: CREATININE, URINE 122.7 MG/DL (30.0-125.0); URINE TOTAL PROTEIN 33.5 mg/dL (0-11.9)
[2023-02-05 06:49] LABS: BASOPHILS % (AUTO) 0.2 % (0.0-2.0); EOSINOPHILS # (AUTO) 0.1 K/uL (0.0-0.7); HEMATOCRIT 39 % (39-51); HEMOGLOBIN 12.3 g/dL (13.5-17.5); LYMPHOCYTES % (AUTO) 7.8 % (20.0-44.0); MEAN CORPUSCULAR HEMOGLOBIN 30 PG (26.0-33.0); MEAN CORPUSCULAR HGB CONC 32 g/dl (31.0-36.0); MEAN CORPUSCULAR VOLUME 93 fL (80-96); MONOCYTES # (AUTO) 1.2 K/uL (0.1-1.30); NEUTROPHILS # (AUTO) 10.9 K/uL (1.8-8.9); PLATELET COUNT (AUTO) 181 K/uL (150-450); RED BLOOD CELL COUNT(AUTO) 4.15 MIL/uL (4.5-6.0); RED CELL DISTRIBUTION WIDTH 16.9 % (11.5-15.0); WHITE BLOOD COUNT (AUTO) 13.3 K/uL (4.3-11.0)
[2023-02-05 06:55] LABS: ALANINE AMINOTRANSFERASE 15 U/L (12-78); ALBUMIN 1.5 g/dL (3.4-5.0); ALKALINE PHOSPHATASE 56 U/L (46-116); ASPARTATE AMINOTRANSFERASE 48 U/L (15-37); BILIRUBIN,TOTAL 0.7 mg/dL (0.2-1.0); CALCIUM, SERUM 7.6 mg/dL (8.5-10.1); CARBON DIOXIDE 25 mmol/L (21-32); CHLORIDE 120 mmol/L (98-107); CREATININE 1.9 mg/dL (0.6-1.3); GLUCOSE 200 mg/dL (74-106); MAGNESIUM 3.3 mg/dL (1.8-2.4); PHOSPHORUS 3.9 mg/dL (2.5-4.9); POTASSIUM 5.8 mmol/L (3.5-5.1); SODIUM SERUM 152 mmol/L (136-145); TOTAL PROTEIN, SERUM 5.7 g/dL (6.4-8.2); UREA NITROGEN, BLOOD 73 mg/dL (7-18)
[2023-02-05 07:30] VITALS: BP 123/71; TEMP 98.8; O2SAT 100
[2023-02-05] MEDS ORDERED: SODIUM POLYSTYRENE SULFONATE 15 G/60 ML BOTTLE PO ONE (09:00)
[2023-02-05] MEDS: LACTULOSE 10 G/15 ML UDC (PYXIS) PO SCH ×3 (09:00→16:19)
[2023-02-05 10:27] LABS: CREATINE KINASE, TOTAL 209 U/L (39-308)
[2023-02-05] MEDS ORDERED: IV D5W 500 ML IV ONE (11:30)
[2023-02-05 12:00] VITALS: BP 116/88; TEMP 97.3; O2SAT 99
[2023-02-05 16:00] VITALS: BP 102/62; TEMP 98.6; O2SAT 95
[2023-02-05 16:20] LABS: SODIUM SERUM 142 mmol/L (136-145)
[2023-02-05 16:21] LABS: CALCIUM, SERUM 7.8 mg/dL (8.5-10.1); CARBON DIOXIDE 24 mmol/L (21-32); CHLORIDE 109 mmol/L (98-107); CREATININE 1.7 mg/dL (0.6-1.3); GLUCOSE 347 mg/dL (74-106); POTASSIUM 4.4 mmol/L (3.5-5.1); UREA NITROGEN, BLOOD 59 mg/dL (7-18)
[2023-02-05 20:00] VITALS: BP 122/52; TEMP 98.6; O2SAT 100
[2023-02-06 04:00] VITALS: BP 121/57; TEMP 98; O2SAT 100
[2023-02-06 06:07] LABS: PTH, INTACT 59 pg/mL (15-65)
[2023-02-06 07:30] LABS: BASOPHILS % (AUTO) 0.4 % (0.0-2.0); EOSINOPHILS # (AUTO) 0.3 K/uL (0.0-0.7); EOSINOPHILS % (AUTO) 2.9 % (0.0-6.0); HEMATOCRIT 35 % (39-51); HEMOGLOBIN 11.3 g/dL (13.5-17.5); LYMPHOCYTES # (AUTO) 0.8 K/uL (0.8-4.8); LYMPHOCYTES % (AUTO) 8.3 % (20.0-44.0); MEAN CORPUSCULAR HEMOGLOBIN 30 PG (26.0-33.0); MEAN CORPUSCULAR HGB CONC 32 g/dl (31.0-36.0); MEAN CORPUSCULAR VOLUME 92 fL (80-96); MONOCYTES # (AUTO) 0.7 K/uL (0.1-1.30); MONOCYTES % (AUTO) 7.1 % (2.0-12.0); NEUTROPHILS # (AUTO) 8.1 K/uL (1.8-8.9); NEUTROPHILS % (AUTO) 81.3 % (43.0-81.0); PLATELET COUNT (AUTO) 184 K/uL (150-450); RED BLOOD CELL COUNT(AUTO) 3.81 MIL/uL (4.5-6.0); RED CELL DISTRIBUTION WIDTH 16.4 % (11.5-15.0); WHITE BLOOD COUNT (AUTO) 9.9 K/uL (4.3-11.0)
[2023-02-06 07:47] LABS: CALCIUM, SERUM 8.2 mg/dL (8.5-10.1); CARBON DIOXIDE 25 mmol/L (21-32); CHLORIDE 115 mmol/L (98-107); CREATININE 1.5 mg/dL (0.6-1.3); GLUCOSE 103 mg/dL (74-106); POTASSIUM 3.7 mmol/L (3.5-5.1); SODIUM SERUM 149 mmol/L (136-145); UREA NITROGEN, BLOOD 45 mg/dL (7-18)
[2023-02-06] MEDS: IV D5W 1,000 ML IV PRN ×2 (07:53→13:53)
[2023-02-06 08:00] VITALS: BP 131/59; TEMP 98; O2SAT 100
[2023-02-06] MEDS: LACTULOSE 10 G/15 ML UDC (PYXIS) PO SCH ×3 (09:00→17:00)
[2023-02-06] MEDS ORDERED: IV D5W 500 ML IV ONE (13:00)
[2023-02-06 13:06] LABS: *SPE A/G RATIO 0.5 (0.7-1.7); *SPE ALBUMIN 2.2 g/dL (2.9-4.4); *SPE ALPHA-1-GLOBULIN 0.4 g/dL (0.0-0.4); *SPE ALPHA-2-GLOBULIN 0.8 g/dL (0.4-1.0); *SPE BETA GLOBULIN 0.8 g/dL (0.7-1.3); *SPE GLOBULIN, TOTAL 4.2 g/dL (2.2-3.9); *SPE M-SPIKE 1.5 g/dL (Not Observed); *SPE PROTEIN TOTAL 6.4 g/dL (6.0-8.5); *SPEGAMMA GLOBULIN 2.2 g/dL (0.4-1.8)
[2023-02-06 16:00] VITALS: BP 106/62; TEMP 98.7; O2SAT 98
[2023-02-06 20:00] VITALS: BP 108/70; TEMP 100.6; O2SAT 97
[2023-02-07 04:00] VITALS: BP 117/60; TEMP 97.9; O2SAT 98
[2023-02-07] MEDS: IV D5W 1,000 ML IV PRN (06:01)
[2023-02-07 06:02] LABS: BASOPHILS % (AUTO) 0.1 % (0.0-2.0); EOSINOPHILS # (AUTO) 0.6 K/uL (0.0-0.7); EOSINOPHILS % (AUTO) 6.6 % (0.0-6.0); HEMATOCRIT 29 % (39-51); HEMOGLOBIN 9.7 g/dL (13.5-17.5); LYMPHOCYTES # (AUTO) 0.9 K/uL (0.8-4.8); LYMPHOCYTES % (AUTO) 9.4 % (20.0-44.0); MEAN CORPUSCULAR HEMOGLOBIN 30 PG (26.0-33.0); MEAN CORPUSCULAR HGB CONC 33 g/dl (31.0-36.0); MEAN CORPUSCULAR VOLUME 91 fL (80-96); MONOCYTES # (AUTO) 0.7 K/uL (0.1-1.30); MONOCYTES % (AUTO) 7.3 % (2.0-12.0); NEUTROPHILS # (AUTO) 6.9 K/uL (1.8-8.9); NEUTROPHILS % (AUTO) 76.6 % (43.0-81.0); PLATELET COUNT (AUTO) 179 K/uL (150-450); RED BLOOD CELL COUNT(AUTO) 3.22 MIL/uL (4.5-6.0); RED CELL DISTRIBUTION WIDTH 16.7 % (11.5-15.0)
[2023-02-07 06:19] LABS: ALBUMIN 1.7 g/dL (3.4-5.0); CALCIUM, SERUM 7.9 mg/dL (8.5-10.1); CREATININE 1.1 mg/dL (0.6-1.3); MAGNESIUM 2.5 mg/dL (1.8-2.4); PHOSPHORUS 2.2 mg/dL (2.5-4.9); POTASSIUM 3.4 mmol/L (3.5-5.1); TOTAL PROTEIN, SERUM 6.4 g/dL (6.4-8.2)
[2023-02-07 08:00] VITALS: BP 97/60; TEMP 98.5; O2SAT 100
[2023-02-07] MEDS: POTASSIUM CL. PREMIX PERIPHER. 50 ML IV SCH ×4 (08:06→11:46)
[2023-02-07] MEDS: LACTULOSE 10 G/15 ML UDC (PYXIS) PO SCH ×3 (09:00→16:50)
[2023-02-07 16:00] VITALS: BP 95/60; TEMP 98.5; O2SAT 100
[2023-02-07] MEDS ORDERED: NEUTRA PHOS 1 POWD.PACKET GT ONE (16:00)
[2023-02-07] MEDS: GLUCERNA 1.2 1,000 ML BOTTLE NG PRN (16:50)
[2023-02-07 20:00] VITALS: BP 108/58; TEMP 98.4; O2SAT 100
[2023-02-08] MEDS: IV D5W 1,000 ML IV PRN ×2 (00:33→13:25)
[2023-02-08 04:00] VITALS: BP 109/52; TEMP 99.8; O2SAT 97
[2023-02-08 05:49] LABS: BASOPHILS % (AUTO) 0.3 % (0.0-2.0); EOSINOPHILS # (AUTO) 0.4 K/uL (0.0-0.7); HEMATOCRIT 29 % (39-51); HEMOGLOBIN 9.6 g/dL (13.5-17.5); LYMPHOCYTES # (AUTO) 1.1 K/uL (0.8-4.8); LYMPHOCYTES % (AUTO) 15.1 % (20.0-44.0); MEAN CORPUSCULAR HEMOGLOBIN 30 PG (26.0-33.0); MEAN CORPUSCULAR HGB CONC 34 g/dl (31.0-36.0); MEAN CORPUSCULAR VOLUME 90 fL (80-96); MONOCYTES # (AUTO) 0.7 K/uL (0.1-1.30); MONOCYTES % (AUTO) 9.9 % (2.0-12.0); NEUTROPHILS % (AUTO) 68.7 % (43.0-81.0); PLATELET COUNT (AUTO) 217 K/uL (150-450); RED BLOOD CELL COUNT(AUTO) 3.17 MIL/uL (4.5-6.0); WHITE BLOOD COUNT (AUTO) 7.3 K/uL (4.3-11.0)
[2023-02-08 06:07] LABS: CALCIUM, SERUM 7.7 mg/dL (8.5-10.1); CARBON DIOXIDE 23 mmol/L (21-32); CHLORIDE 108 mmol/L (98-107); CREATININE 1.2 mg/dL (0.6-1.3); GLUCOSE 118 mg/dL (74-106); MAGNESIUM 2.4 mg/dL (1.8-2.4); PHOSPHORUS 2.4 mg/dL (2.5-4.9); POTASSIUM 3.9 mmol/L (3.5-5.1); SODIUM SERUM 140 mmol/L (136-145); UREA NITROGEN, BLOOD 21 mg/dL (7-18)
[2023-02-08 08:00] VITALS: BP 104/58; TEMP 98.9; O2SAT 96
[2023-02-08] MEDS ORDERED: NEUTRA PHOS 1 POWD.PACKET NG ONE (10:00)
[2023-02-08] MEDS: LACTULOSE 10 G/15 ML UDC (PYXIS) PO SCH ×3 (10:00→17:29)
[2023-02-08 16:00] VITALS: BP 111/60; TEMP 98.9; O2SAT 94
[2023-02-08] MEDS ORDERED: NEUTRA PHOS 1 POWD.PACKET GT ONE (17:00)
[2023-02-08 20:00] VITALS: BP 126/69; TEMP 99.9; O2SAT 97
[2023-02-09] MEDS: IV D5W 1,000 ML IV PRN ×2 (03:20→18:21)
[2023-02-09 04:00] VITALS: BP 103/69; TEMP 100.8; O2SAT 95
[2023-02-09 07:46] LABS: CALCIUM, SERUM 7.5 mg/dL (8.5-10.1); CARBON DIOXIDE 23 mmol/L (21-32); CHLORIDE 106 mmol/L (98-107); CREATININE 1.2 mg/dL (0.6-1.3); GLUCOSE 134 mg/dL (74-106); PHOSPHORUS 3.4 mg/dL (2.5-4.9); POTASSIUM 4.4 mmol/L (3.5-5.1); SODIUM SERUM 138 mmol/L (136-145); UREA NITROGEN, BLOOD 21 mg/dL (7-18)
[2023-02-09 08:00] VITALS: BP 94/61; TEMP 99; O2SAT 100
[2023-02-09 09:32] LABS: BASOPHILS # (AUTO) 0.1 K/uL (0.0-0.2); BASOPHILS % (AUTO) 0.7 % (0.0-2.0); EOSINOPHILS # (AUTO) 0.2 K/uL (0.0-0.7); EOSINOPHILS % (AUTO) 2.7 % (0.0-6.0); HEMATOCRIT 33 % (39-51); HEMOGLOBIN 10.8 g/dL (13.5-17.5); LYMPHOCYTES # (AUTO) 1.1 K/uL (0.8-4.8); LYMPHOCYTES % (AUTO) 14.5 % (20.0-44.0); MEAN CORPUSCULAR HEMOGLOBIN 30 PG (26.0-33.0); MEAN CORPUSCULAR HGB CONC 33 g/dl (31.0-36.0); MEAN CORPUSCULAR VOLUME 92 fL (80-96); MONOCYTES # (AUTO) 1.4 K/uL (0.1-1.30); MONOCYTES % (AUTO) 18.6 % (2.0-12.0); NEUTROPHILS # (AUTO) 4.6 K/uL (1.8-8.9); NEUTROPHILS % (AUTO) 63.5 % (43.0-81.0); PLATELET COUNT (AUTO) 205 K/uL (150-450); RED BLOOD CELL COUNT(AUTO) 3.62 MIL/uL (4.5-6.0); RED CELL DISTRIBUTION WIDTH 16.6 % (11.5-15.0); WHITE BLOOD COUNT (AUTO) 7.3 K/uL (4.3-11.0)
[2023-02-09] MEDS: LACTULOSE 10 G/15 ML UDC (PYXIS) PO SCH ×3 (09:47→16:12)
[2023-02-09] MEDS: GLUCERNA 1.2 1,000 ML BOTTLE NG PRN (12:45)
[2023-02-09 13:07] LABS: PLATELET ESTIMATE ADEQUATE
[2023-02-09 16:00] VITALS: BP 100/57; TEMP 97.5; O2SAT 96
[2023-02-09 20:00] VITALS: BP 96/56; TEMP 100.4; O2SAT 96
[2023-02-09] MEDS: ACETAMINOPHEN 325 MG TABLET PO PRN (21:38)
[2023-02-10 04:00] VITALS: BP 127/65; TEMP 98.9; O2SAT 96
[2023-02-10] MEDS: IV D5W 1,000 ML IV PRN (04:25)
[2023-02-10] MEDS: GLUCERNA 1.2 1,000 ML BOTTLE NG PRN (04:26)
[2023-02-10 06:34] LABS: BASOPHILS % (AUTO) 0.4 % (0.0-2.0); EOSINOPHILS # (AUTO) 0.7 K/uL (0.0-0.7); EOSINOPHILS % (AUTO) 11.1 % (0.0-6.0); HEMATOCRIT 27 % (39-51); HEMOGLOBIN 8.8 g/dL (13.5-17.5); LYMPHOCYTES # (AUTO) 0.8 K/uL (0.8-4.8); LYMPHOCYTES % (AUTO) 12.9 % (20.0-44.0); MEAN CORPUSCULAR HEMOGLOBIN 30 PG (26.0-33.0); MEAN CORPUSCULAR HGB CONC 33 g/dl (31.0-36.0); MEAN CORPUSCULAR VOLUME 91 fL (80-96); MONOCYTES # (AUTO) 0.8 K/uL (0.1-1.30); MONOCYTES % (AUTO) 12.7 % (2.0-12.0); NEUTROPHILS # (AUTO) 4.1 K/uL (1.8-8.9); NEUTROPHILS % (AUTO) 62.9 % (43.0-81.0); PLATELET COUNT (AUTO) 249 K/uL (150-450); RED BLOOD CELL COUNT(AUTO) 2.96 MIL/uL (4.5-6.0); RED CELL DISTRIBUTION WIDTH 15.9 % (11.5-15.0); WHITE BLOOD COUNT (AUTO) 6.4 K/uL (4.3-11.0)
[2023-02-10 07:09] LABS: ALANINE AMINOTRANSFERASE 29 U/L (12-78); ALKALINE PHOSPHATASE 70 U/L (46-116); ASPARTATE AMINOTRANSFERASE 42 U/L (15-37); BILIRUBIN,TOTAL 0.3 mg/dL (0.2-1.0); CALCIUM, SERUM 7.3 mg/dL (8.5-10.1); CARBON DIOXIDE 23 mmol/L (21-32); CHLORIDE 107 mmol/L (98-107); CREATININE 1.1 mg/dL (0.6-1.3); GLUCOSE 126 mg/dL (74-106); PHOSPHORUS 2.4 mg/dL (2.5-4.9); POTASSIUM 3.4 mmol/L (3.5-5.1); SODIUM SERUM 137 mmol/L (136-145); TOTAL PROTEIN, SERUM 5.5 g/dL (6.4-8.2); UREA NITROGEN, BLOOD 18 mg/dL (7-18)
[2023-02-10 07:45] LABS: ALBUMIN 1.2 g/dL (3.4-5.0)
[2023-02-10 08:00] VITALS: BP 119/64; TEMP 99.7; O2SAT 96
[2023-02-10] MEDS: LACTULOSE 10 G/15 ML UDC (PYXIS) PO SCH ×3 (08:13→16:06)
[2023-02-10] MEDS ORDERED: POTASSIUM CHLORIDE 20 MEQ POWDER PACKET GT ONE (09:00)
[2023-02-10] MEDS ORDERED: NEUTRA PHOS 1 POWD.PACKET PO ONE (09:00)
[2023-02-10] MEDS ORDERED: LEVETIRACETAM (500MG) 1,000 MG in IV NS 0.9% 90 ML IV ONE (15:30)
[2023-02-10 16:00] VITALS: BP 128/59; TEMP 99.5; O2SAT 97
[2023-02-10 20:00] VITALS: BP 96/61; TEMP 100; O2SAT 81
[2023-02-10 21:20] LABS: THYROID STIMULATING HORMONE 3.908 uIU/mL (0.358-3.74)
[2023-02-11] MEDS: GLUCERNA 1.2 1,000 ML BOTTLE NG PRN (01:49)
[2023-02-11] MEDS: ACETAMINOPHEN 325 MG TABLET PO PRN ×2 (01:51→22:48)
[2023-02-11 04:00] VITALS: BP 100/0; TEMP 99.7; O2SAT 96
[2023-02-11 05:53] LABS: BASOPHILS % (AUTO) 0.5 % (0.0-2.0); EOSINOPHILS # (AUTO) 0.5 K/uL (0.0-0.7); EOSINOPHILS % (AUTO) 5.9 % (0.0-6.0); HEMATOCRIT 26 % (39-51); HEMOGLOBIN 8.6 g/dL (13.5-17.5); LYMPHOCYTES # (AUTO) 0.9 K/uL (0.8-4.8); MEAN CORPUSCULAR HEMOGLOBIN 30 PG (26.0-33.0); MEAN CORPUSCULAR HGB CONC 33 g/dl (31.0-36.0); MEAN CORPUSCULAR VOLUME 89 fL (80-96); MONOCYTES % (AUTO) 13.1 % (2.0-12.0); NEUTROPHILS # (AUTO) 5.2 K/uL (1.8-8.9); NEUTROPHILS % (AUTO) 68.5 % (43.0-81.0); PLATELET COUNT (AUTO) 249 K/uL (150-450); RED BLOOD CELL COUNT(AUTO) 2.93 MIL/uL (4.5-6.0); RED CELL DISTRIBUTION WIDTH 15.8 % (11.5-15.0); WHITE BLOOD COUNT (AUTO) 7.6 K/uL (4.3-11.0)
[2023-02-11 06:09] LABS: ALANINE AMINOTRANSFERASE 22 U/L (12-78); ALKALINE PHOSPHATASE 68 U/L (46-116); ASPARTATE AMINOTRANSFERASE 27 U/L (15-37); BILIRUBIN,TOTAL 0.4 mg/dL (0.2-1.0); CALCIUM, SERUM 7.3 mg/dL (8.5-10.1); CARBON DIOXIDE 25 mmol/L (21-32); CHLORIDE 104 mmol/L (98-107); GLUCOSE 101 mg/dL (74-106); PHOSPHORUS 2.6 mg/dL (2.5-4.9); POTASSIUM 4.1 mmol/L (3.5-5.1); SODIUM SERUM 134 mmol/L (136-145); TOTAL PROTEIN, SERUM 5.6 g/dL (6.4-8.2); UREA NITROGEN, BLOOD 17 mg/dL (7-18)
[2023-02-11 06:25] LABS: ALBUMIN 1.1 g/dL (3.4-5.0)
[2023-02-11 08:00] VITALS: BP 95/46; TEMP 99.5; O2SAT 91
[2023-02-11] MEDS: LACTULOSE 10 G/15 ML UDC (PYXIS) PO SCH ×3 (09:08→16:43)
[2023-02-11] MEDS: THIAMINE HCL 100 MG TABLET NG SCH (11:54)
[2023-02-11] MEDS: FOLIC ACID 1 MG TABLET NG SCH (11:54)
[2023-02-11 14:00] VITALS: BP 100/70; TEMP 99.7; O2SAT 97
[2023-02-11 16:00] VITALS: BP 100/70; TEMP 99.7; O2SAT 97
[2023-02-11] MEDS: PROSOURCE / PROSTAT (PYXIS) 30 ML UDC GT SCH (16:41)
[2023-02-11] MEDS: VANCOMYCIN 1 GM in IV D5W 250 ML IV SCH (16:44)
[2023-02-11] MEDS ORDERED: IV NS 0.9% 250 ML IV ONE (17:00)
[2023-02-11] MEDS ORDERED: IOHEXOL-300 100 ML VIAL IV ONE (17:00)
[2023-02-11 17:15] LABS: HIV-1 p24 ANTIGEN NON REACTIVE (NONREACTIVE); HIV-1/2 ANTIBODY NON REACTIVE (NONREACTIVE)
[2023-02-11 20:00] VITALS: BP_SYST 123; BP_SYST 99; BP_DIAS 58; BP_DIAS 63; TEMP 99.5; O2SAT 99
[2023-02-11] MEDS: ATORVASTATIN 10 MG TABLET NG SCH (21:51)
[2023-02-12 04:00] VITALS: BP 109/65; TEMP 98.5; O2SAT 98
[2023-02-12] MEDS: GLUCERNA 1.2 1,000 ML BOTTLE NG PRN (04:07)
[2023-02-12 06:26] LABS: BASOPHILS % (AUTO) 0.4 % (0.0-2.0); EOSINOPHILS # (AUTO) 0.3 K/uL (0.0-0.7); EOSINOPHILS % (AUTO) 5.4 % (0.0-6.0); HEMATOCRIT 31 % (39-51); HEMOGLOBIN 10.1 g/dL (13.5-17.5); LYMPHOCYTES # (AUTO) 1.1 K/uL (0.8-4.8); LYMPHOCYTES % (AUTO) 17.3 % (20.0-44.0); MEAN CORPUSCULAR HEMOGLOBIN 30 PG (26.0-33.0); MEAN CORPUSCULAR HGB CONC 33 g/dl (31.0-36.0); MEAN CORPUSCULAR VOLUME 92 fL (80-96); MONOCYTES # (AUTO) 0.8 K/uL (0.1-1.30); MONOCYTES % (AUTO) 12.7 % (2.0-12.0); NEUTROPHILS # (AUTO) 4.1 K/uL (1.8-8.9); NEUTROPHILS % (AUTO) 64.2 % (43.0-81.0); PLATELET COUNT (AUTO) 284 K/uL (150-450); RED BLOOD CELL COUNT(AUTO) 3.36 MIL/uL (4.5-6.0); RED CELL DISTRIBUTION WIDTH 16.7 % (11.5-15.0); WHITE BLOOD COUNT (AUTO) 6.4 K/uL (4.3-11.0)
[2023-02-12 06:50] LABS: CALCIUM, SERUM 7.5 mg/dL (8.5-10.1); CARBON DIOXIDE 22 mmol/L (21-32); CHLORIDE 102 mmol/L (98-107); CREATININE 0.9 mg/dL (0.6-1.3); GLUCOSE 82 mg/dL (74-106); MAGNESIUM 2.3 mg/dL (1.8-2.4); PHOSPHORUS 3.3 mg/dL (2.5-4.9); POTASSIUM 4.5 mmol/L (3.5-5.1); SODIUM SERUM 132 mmol/L (136-145); UREA NITROGEN, BLOOD 16 mg/dL (7-18)
[2023-02-12 08:00] VITALS: BP 109/65; TEMP 98.5; O2SAT 98
[2023-02-12] MEDS: FOLIC ACID 1 MG TABLET NG SCH (09:50)
[2023-02-12] MEDS: ASPIRIN 81 MG TAB.CHEW GT SCH (09:50)
[2023-02-12] MEDS: PROSOURCE / PROSTAT (PYXIS) 30 ML UDC GT SCH ×3 (09:50→17:28)
[2023-02-12] MEDS: LACTULOSE 10 G/15 ML UDC (PYXIS) PO SCH ×3 (09:50→17:33)
[2023-02-12] MEDS: THIAMINE HCL 100 MG TABLET NG SCH (09:51)
[2023-02-12 10:00] VITALS: BP 103/65; TEMP 98.5; O2SAT 98
[2023-02-12] MEDS ORDERED: IOHEXOL-300 100 ML VIAL IV ONE (11:14)
[2023-02-12] MEDS ORDERED: CT SWABBABLE VALVE TRANS SET 1 EA INFUS.SET MC ONE (11:14)
[2023-02-12] MEDS ORDERED: IV NS 0.9% 250 ML IV ONE (11:14)
[2023-02-12] MEDS ORDERED: AMLO-212 PO (14:27)
[2023-02-12] MEDS ORDERED: TEMA15CA PO (14:27)
[2023-02-12] MEDS ORDERED: ATRO2DRO4 SL (14:27)
[2023-02-12] MEDS ORDERED: MAGN400O6 PO (14:27)
[2023-02-12] MEDS ORDERED: ASPI-1169 PO (14:27)
[2023-02-12] MEDS ORDERED: ONDA4TAB5 PO (14:27)
[2023-02-12] MEDS ORDERED: OLAN10TA3 PO (14:27)
[2023-02-12] MEDS ORDERED: MAG355OR18 PO (14:27)
[2023-02-12] MEDS ORDERED: ACET-868 PO (14:27)
[2023-02-12] MEDS ORDERED: GABA300C PO (14:27)
[2023-02-12] MEDS ORDERED: FURO-145 PO (14:27)
[2023-02-12] MEDS ORDERED: NEOM28.43 TP (14:27)
[2023-02-12 16:00] VITALS: BP 103/65; TEMP 98.5; O2SAT 98
[2023-02-12] MEDS: VANCOMYCIN 1 GM in IV D5W 250 ML IV SCH (18:02)
[2023-02-12 20:59] VITALS: BP 105/64; TEMP 97.8; O2SAT 96
[2023-02-12] MEDS: ATORVASTATIN 10 MG TABLET NG SCH (22:13)
[2023-02-13 04:11] VITALS: BP 101/53; TEMP 98.3; O2SAT 95
[2023-02-13] MEDS: GLUCERNA 1.2 1,000 ML BOTTLE NG PRN ×2 (04:20→18:26)
[2023-02-13 07:06] LABS: BASOPHILS % (AUTO) 0.5 % (0.0-2.0); EOSINOPHILS # (AUTO) 0.2 K/uL (0.0-0.7); EOSINOPHILS % (AUTO) 3.2 % (0.0-6.0); HEMATOCRIT 29 % (39-51); HEMOGLOBIN 9.5 g/dL (13.5-17.5); LYMPHOCYTES # (AUTO) 0.9 K/uL (0.8-4.8); LYMPHOCYTES % (AUTO) 13.5 % (20.0-44.0); MEAN CORPUSCULAR HEMOGLOBIN 29 PG (26.0-33.0); MEAN CORPUSCULAR HGB CONC 33 g/dl (31.0-36.0); MEAN CORPUSCULAR VOLUME 89 fL (80-96); MONOCYTES # (AUTO) 0.8 K/uL (0.1-1.30); MONOCYTES % (AUTO) 10.7 % (2.0-12.0); NEUTROPHILS # (AUTO) 5.1 K/uL (1.8-8.9); NEUTROPHILS % (AUTO) 72.1 % (43.0-81.0); PLATELET COUNT (AUTO) 363 K/uL (150-450); RED BLOOD CELL COUNT(AUTO) 3.23 MIL/uL (4.5-6.0); RED CELL DISTRIBUTION WIDTH 16.2 % (11.5-15.0)
[2023-02-13 07:28] LABS: CALCIUM, SERUM 7.5 mg/dL (8.5-10.1); CARBON DIOXIDE 27 mmol/L (21-32); CHLORIDE 103 mmol/L (98-107); CREATININE 0.9 mg/dL (0.6-1.3); GLUCOSE 130 mg/dL (74-106); MAGNESIUM 2.1 mg/dL (1.8-2.4); PHOSPHORUS 2.8 mg/dL (2.5-4.9); POTASSIUM 4.6 mmol/L (3.5-5.1); SODIUM SERUM 135 mmol/L (136-145); UREA NITROGEN, BLOOD 18 mg/dL (7-18)
[2023-02-13 08:00] VITALS: BP 101/44; TEMP 98.2; O2SAT 96
[2023-02-13] MEDS: PROSOURCE / PROSTAT (PYXIS) 30 ML UDC GT SCH ×3 (08:23→17:43)
[2023-02-13] MEDS: CYANOCOBALAMIN 500 MCG TABLET PO SCH (09:11)
[2023-02-13] MEDS: LACTULOSE 10 G/15 ML UDC (PYXIS) PO SCH ×3 (09:11→17:43)
[2023-02-13] MEDS: ASPIRIN 81 MG TAB.CHEW GT SCH (09:11)
[2023-02-13] MEDS: THIAMINE HCL 100 MG TABLET NG SCH (09:12)
[2023-02-13] MEDS: FOLIC ACID 1 MG TABLET NG SCH (09:12)
[2023-02-13] MEDS ORDERED: VANCOMYCIN 500 MG in IV D5W 100ml IV SCH (11:00)
[2023-02-13] MEDS: DAKINS QUARTER STRENGTH (0.125%) 480 ML BOTTLE TOP SCH (12:49)
[2023-02-13] MEDS ORDERED: PERMETHRIN 5% CRM 60 GM TUBE TP ONE (15:00)
[2023-02-13 16:00] VITALS: BP 123/65; TEMP 99.1; O2SAT 96
[2023-02-13 20:00] VITALS: BP 109/55; TEMP 99.5; O2SAT 97
[2023-02-13] MEDS: CEFAZOLIN 2 GM in IV D5W 100 ML IV SCH (21:37)
[2023-02-13] MEDS: ATORVASTATIN 10 MG TABLET NG SCH (21:39)
[2023-02-14] MEDS: CEFAZOLIN 2 GM in IV D5W 100 ML IV SCH ×3 (04:54→21:06)
[2023-02-14 08:00] VITALS: BP 115/58; TEMP 99.3; O2SAT 95
[2023-02-14] MEDS: PROSOURCE / PROSTAT (PYXIS) 30 ML UDC GT SCH ×3 (09:02→17:49)
[2023-02-14] MEDS: THIAMINE HCL 100 MG TABLET NG SCH (09:02)
[2023-02-14] MEDS: ASPIRIN 81 MG TAB.CHEW GT SCH (09:02)
[2023-02-14] MEDS: FOLIC ACID 1 MG TABLET NG SCH (09:02)
[2023-02-14] MEDS: LACTULOSE 10 G/15 ML UDC (PYXIS) PO SCH ×3 (09:03→17:49)
[2023-02-14] MEDS: CYANOCOBALAMIN 500 MCG TABLET PO SCH (09:03)
[2023-02-14] MEDS: DAKINS QUARTER STRENGTH (0.125%) 480 ML BOTTLE TOP SCH (09:04)
[2023-02-14 09:39] LABS: CALCIUM, SERUM 7.6 mg/dL (8.5-10.1); CREATININE 0.9 mg/dL (0.6-1.3); POTASSIUM 4.4 mmol/L (3.5-5.1)
[2023-02-14 16:00] VITALS: BP 117/60; TEMP 97.7; O2SAT 97
[2023-02-14] MEDS: GLUCERNA 1.2 1,000 ML BOTTLE NG PRN (18:11)
[2023-02-14] MEDS: ATORVASTATIN 10 MG TABLET NG SCH (21:06)
[2023-02-15] MEDS: CEFAZOLIN 2 GM in IV D5W 100 ML IV SCH ×3 (04:49→20:11)
[2023-02-15 07:24] LABS: BASOPHILS % (AUTO) 0.5 % (0.0-2.0); EOSINOPHILS # (AUTO) 0.4 K/uL (0.0-0.7); EOSINOPHILS % (AUTO) 8.5 % (0.0-6.0); HEMATOCRIT 26 % (39-51); HEMOGLOBIN 8.8 g/dL (13.5-17.5); LYMPHOCYTES # (AUTO) 0.9 K/uL (0.8-4.8); LYMPHOCYTES % (AUTO) 19.9 % (20.0-44.0); MEAN CORPUSCULAR HEMOGLOBIN 30 PG (26.0-33.0); MEAN CORPUSCULAR HGB CONC 34 g/dl (31.0-36.0); MEAN CORPUSCULAR VOLUME 88 fL (80-96); MONOCYTES # (AUTO) 0.6 K/uL (0.1-1.30); MONOCYTES % (AUTO) 12.9 % (2.0-12.0); NEUTROPHILS # (AUTO) 2.6 K/uL (1.8-8.9); NEUTROPHILS % (AUTO) 58.2 % (43.0-81.0); PLATELET COUNT (AUTO) 414 K/uL (150-450); RED BLOOD CELL COUNT(AUTO) 2.98 MIL/uL (4.5-6.0); RED CELL DISTRIBUTION WIDTH 15.9 % (11.5-15.0); WHITE BLOOD COUNT (AUTO) 4.5 K/uL (4.3-11.0)
[2023-02-15 07:53] LABS: CALCIUM, SERUM 7.5 mg/dL (8.5-10.1); CARBON DIOXIDE 25 mmol/L (21-32); CHLORIDE 101 mmol/L (98-107); CREATININE 0.9 mg/dL (0.6-1.3); GLUCOSE 121 mg/dL (74-106); MAGNESIUM 2.1 mg/dL (1.8-2.4); PHOSPHORUS 3.3 mg/dL (2.5-4.9); POTASSIUM 4.4 mmol/L (3.5-5.1); SODIUM SERUM 134 mmol/L (136-145); UREA NITROGEN, BLOOD 25 mg/dL (7-18)
[2023-02-15 09:00] VITALS: BP 118/50; TEMP 98.5; O2SAT 96
[2023-02-15] MEDS: FOLIC ACID 1 MG TABLET NG SCH (09:51)
[2023-02-15] MEDS: THIAMINE HCL 100 MG TABLET NG SCH (09:51)
[2023-02-15] MEDS: PROSOURCE / PROSTAT (PYXIS) 30 ML UDC GT SCH ×3 (09:51→17:54)
[2023-02-15] MEDS: ASPIRIN 81 MG TAB.CHEW GT SCH (09:51)
[2023-02-15] MEDS: CYANOCOBALAMIN 500 MCG TABLET PO SCH (09:51)
[2023-02-15] MEDS: LACTULOSE 10 G/15 ML UDC (PYXIS) PO SCH ×3 (09:54→17:54)
[2023-02-15] MEDS: DAKINS QUARTER STRENGTH (0.125%) 480 ML BOTTLE TOP SCH (10:12)
[2023-02-15] MEDS: GLUCERNA 1.2 1,000 ML BOTTLE NG PRN (14:15)
[2023-02-15 16:00] VITALS: BP 107/60; TEMP 98.3; O2SAT 100
[2023-02-15] MEDS ORDERED: OLANZAPINE 10 MG TABLET PO SCH (18:00)
[2023-02-15 21:17] VITALS: BP 116/54; TEMP 97.8; O2SAT 100
[2023-02-15] MEDS: ATORVASTATIN 10 MG TABLET NG SCH (21:20)
[2023-02-16] MEDS: CEFAZOLIN 2 GM in IV D5W 100 ML IV SCH ×3 (04:18→22:06)
[2023-02-16] MEDS: GLUCERNA 1.2 1,000 ML BOTTLE NG PRN (05:22)
[2023-02-16 07:05] LABS: CALCIUM, SERUM 7.6 mg/dL (8.5-10.1); CREATININE 0.8 mg/dL (0.6-1.3); POTASSIUM 4.3 mmol/L (3.5-5.1)
[2023-02-16] MEDS: PROSOURCE / PROSTAT (PYXIS) 30 ML UDC GT SCH ×2 (07:45→07:46)
[2023-02-16] MEDS: DAKINS QUARTER STRENGTH (0.125%) 480 ML BOTTLE TOP SCH (07:46)
[2023-02-16] MEDS: ASPIRIN 81 MG TAB.CHEW GT SCH (08:11)
[2023-02-16] MEDS: FOLIC ACID 1 MG TABLET NG SCH (08:11)
[2023-02-16] MEDS: LACTULOSE 10 G/15 ML UDC (PYXIS) PO SCH (08:11)
[2023-02-16] MEDS: THIAMINE HCL 100 MG TABLET NG SCH (08:11)
[2023-02-16] MEDS: CYANOCOBALAMIN 500 MCG TABLET PO SCH (08:12)
[2023-02-16] MEDS ORDERED: SILVER NITRATE APPLICATOR 1 EA BOX TP STA (08:30)
[2023-02-16] MEDS ORDERED: LIDOCAINE 1%-EPI 1:100,000 50 ML VIAL IJ STA (08:30)
[2023-02-16] MEDS ORDERED: MAGNESIUM HYDROXIDE 30 ML UDC NG PRN (08:35)
[2023-02-16] MEDS ORDERED: MAG HYDROX/AL HYDROX/SIMETH 30 ML UDC NG PRN (08:35)
[2023-02-16 09:00] VITALS: BP 127/72; TEMP 97.7; O2SAT 100
[2023-02-16] MEDS ORDERED: ACETAMINOPHEN 650 MG/20.3 ML UDC NG PRN (09:00)
[2023-02-16] MEDS: ASPIRIN 81 MG TAB.CHEW NG SCH (09:50)
[2023-02-16] MEDS: CYANOCOBALAMIN 500 MCG TABLET NG SCH (09:51)
[2023-02-16] MEDS: LACTULOSE 10 G/15 ML UDC (PYXIS) NG SCH ×3 (09:51→16:22)
[2023-02-16] MEDS: PROSOURCE / PROSTAT (PYXIS) 30 ML UDC NG SCH ×2 (11:09→16:22)
[2023-02-16] MEDS: OLANZAPINE 10 MG TABLET NG SCH (17:02)
[2023-02-16 20:00] VITALS: BP 116/55; TEMP 98.8; O2SAT 95
[2023-02-16 21:00] VITALS: BP 116/55; TEMP 98.8; O2SAT 95
[2023-02-16] MEDS: ATORVASTATIN 10 MG TABLET NG SCH (22:06)
[2023-02-17 04:00] VITALS: BP 129/75; TEMP 99.9; O2SAT 96
[2023-02-17] MEDS: CEFAZOLIN 2 GM in IV D5W 100 ML IV SCH ×3 (05:35→21:40)
[2023-02-17] MEDS: GLUCERNA 1.2 1,000 ML BOTTLE NG PRN (05:36)
[2023-02-17 08:03] LABS: CALCIUM, SERUM 7.7 mg/dL (8.5-10.1); CARBON DIOXIDE 26 mmol/L (21-32); CHLORIDE 99 mmol/L (98-107); CREATININE 0.9 mg/dL (0.6-1.3); GLUCOSE 120 mg/dL (74-106); POTASSIUM 4.5 mmol/L (3.5-5.1); SODIUM SERUM 132 mmol/L (136-145); UREA NITROGEN, BLOOD 21 mg/dL (7-18)
[2023-02-17] MEDS: DAKINS QUARTER STRENGTH (0.125%) 480 ML BOTTLE TOP SCH (08:13)
[2023-02-17] MEDS: ASPIRIN 81 MG TAB.CHEW NG SCH (08:17)
[2023-02-17] MEDS: CYANOCOBALAMIN 500 MCG TABLET NG SCH (08:18)
[2023-02-17] MEDS: LACTULOSE 10 G/15 ML UDC (PYXIS) NG SCH ×3 (08:18→17:02)
[2023-02-17] MEDS: THIAMINE HCL 100 MG TABLET NG SCH (08:19)
[2023-02-17] MEDS: FOLIC ACID 1 MG TABLET NG SCH (08:19)
[2023-02-17] MEDS: PROSOURCE / PROSTAT (PYXIS) 30 ML UDC NG SCH ×3 (08:20→17:02)
[2023-02-17 09:00] VITALS: BP 144/68; TEMP 98.1; O2SAT 95
[2023-02-17] MEDS: OLANZAPINE 10 MG TABLET NG SCH (17:02)
[2023-02-17 21:00] VITALS: BP 111/48; TEMP 98.1; O2SAT 96
[2023-02-17] MEDS: ATORVASTATIN 10 MG TABLET NG SCH (22:10)
[2023-02-18 02:07] LABS: VITAMIN B1 THIAMINE,WB 91.8 nmol/L (66.5-200.0)
[2023-02-18] MEDS: CEFAZOLIN 2 GM in IV D5W 100 ML IV SCH ×2 (04:33→14:44)
[2023-02-18] MEDS: PROSOURCE / PROSTAT (PYXIS) 30 ML UDC NG SCH ×3 (08:00→18:10)
[2023-02-18] MEDS: LACTULOSE 10 G/15 ML UDC (PYXIS) NG SCH ×3 (08:23→18:10)
[2023-02-18] MEDS: ASPIRIN 81 MG TAB.CHEW NG SCH (08:24)
[2023-02-18] MEDS: CYANOCOBALAMIN 500 MCG TABLET NG SCH (08:24)
[2023-02-18] MEDS: FOLIC ACID 1 MG TABLET NG SCH (08:24)
[2023-02-18] MEDS: THIAMINE HCL 100 MG TABLET NG SCH (08:24)
[2023-02-18] MEDS: DAKINS QUARTER STRENGTH (0.125%) 480 ML BOTTLE TOP SCH (09:00)
[2023-02-18 10:38] VITALS: BP 94/72; TEMP 99.7; O2SAT 96
[2023-02-18] MEDS: OLANZAPINE 10 MG TABLET NG SCH (18:11)
== END 2023-02-18 19:15 | disposition hospice, inpatient (51) | DRG 981 ==
LOC: ER 12:57 → TELE1 17:18 → MEDSG1 02-04 17:16
PROVIDERS: ADMIT Nurse Practitioner Acute Care; ATTEND Nurse Practitioner Family
PROC: 05H633Z Insertion of Infusion Device into Left Subclavian Vein, Percutaneous Approach (ICD-10-PCS; 2023-02-04)
PROC: B547ZZA Ultrasonography of Left Subclavian Vein, Guidance (ICD-10-PCS; 2023-02-04)
PROC: 05H533Z Insertion of Infusion Device into Right Subclavian Vein, Percutaneous Approach (ICD-10-PCS; 2023-02-10)
PROC: B546ZZA Ultrasonography of Right Subclavian Vein, Guidance (ICD-10-PCS; 2023-02-10)
PROC: 02HV33Z Insertion of Infusion Device into Superior Vena Cava, Percutaneous Approach (ICD-10-PCS; 2023-02-10)
PROC: B548ZZA Ultrasonography of Superior Vena Cava, Guidance (ICD-10-PCS; 2023-02-10)
PROC: 0KBP0ZZ Excision of Left Hip Muscle, Open Approach (ICD-10-PCS; principal; 2023-02-16)
PROC: 0KBN0ZZ Excision of Right Hip Muscle, Open Approach (ICD-10-PCS; 2023-02-16)
PROC: 0KBG0ZZ Excision of Left Trunk Muscle, Open Approach (ICD-10-PCS; 2023-02-16)
PROC: 0KBF0ZZ Excision of Right Trunk Muscle, Open Approach (ICD-10-PCS; 2023-02-16)
PROC: 05H633Z Insertion of Infusion Device into Left Subclavian Vein, Percutaneous Approach (ICD-10-PCS; 2023-02-16)
PROC: B547ZZA Ultrasonography of Left Subclavian Vein, Guidance (ICD-10-PCS; 2023-02-16)
DX: N17.0 Acute kidney failure with tubular necrosis (principal); G92.8 Other toxic encephalopathy; J69.0 Pneumonitis due to inhalation of food and vomit; L89.154 Pressure ulcer of sacral region, stage 4; L89.104 Pressure ulcer of unspecified part of back, stage 4; M62.82 Rhabdomyolysis; E44.0 Moderate protein-calorie malnutrition; E87.0 Hyperosmolality and hypernatremia; J98.11 Atelectasis; E87.20 Acidosis, unspecified; E87.29 Other acidosis; F10.239 Alcohol dependence with withdrawal, unspecified; R78.81 Bacteremia; E86.1 Hypovolemia; E86.0 Dehydration; E87.5 Hyperkalemia; E87.8 Other disorders of electrolyte and fluid balance, not elsewhere classified; E88.09 Other disorders of plasma-protein metabolism, not elsewhere classified; K59.00 Constipation, unspecified; Z66 Do not resuscitate; Z20.822 Contact with and (suspected) exposure to COVID-19; B86 Scabies; L89.616 Pressure-induced deep tissue damage of right heel; L89.526 Pressure-induced deep tissue damage of left ankle; L89.116 Pressure-induced deep tissue damage of right upper back; L89.126 Pressure-induced deep tissue damage of left upper back; S00.01XA Abrasion of scalp, initial encounter; X58.XXXA Exposure to other specified factors, initial encounter; Y93.9 Activity, unspecified; Y92.9 Unspecified place or not applicable; E83.9 Disorder of mineral metabolism, unspecified; N18.9 Chronic kidney disease, unspecified; M89.8X9 Other specified disorders of bone, unspecified site; I65.22 Occlusion and stenosis of left carotid artery; Z86.73 Personal history of transient ischemic attack (TIA), and cerebral infarction without residual deficits; B95.61 Methicillin susceptible Staphylococcus aureus infection as the cause of diseases classified elsewhere
CPT/HCPCS: 36410; 36415; 70450-TC; 70551-TC; 71045-TC; 71260-TC; 72192-TC; 76770-TC; 80048-TC; 80053-TC; 80076-TC; 80202-TC; 81001; 82140-TC; 82533; 82550-TC; 82553; 82570-TC; 82607-TC; 83690-TC; 83735-TC; 83880; 83921; 83970; 84100-TC; 84155; 84165; 84300-TC; 84425; 84439-TC; 84443-TC; 84484-TC; 84550-TC; 85025-TC; 86803; 87040-TC; 87086-TC; 87806; 92526; 92611-TC; 93307-TC; 93880-TC; 97110-TC; 97112-TC; 97164; 97530-TC; 97535-TC; A4223; A4349; A6253; A6403; G0378; J0690; J1953; J3370; J3480; J3490; J7030; J7042; J7050; J7060; J7070; Q9967